=== PATIENT | female | born 1965 | race Caucasian/White ===

== ENCOUNTER 2020-11-11 16:05 | Emergency (ER) | payer OTHER ==
[~2020-11-11] VITALS: Ht 154.9 cm; Wt 71.7 kg
[~2020-11-11 16:05] MED LIST: GLIMEPIRIDE4 MG; GLUMETZA1000 MG; HUMULIN N100 U/ML; LIPITOR20 MG; LISINOPRIL10 MG; SIMVASTATIN20 MG
[2020-11-11] MEDS ORDERED: CRESTOR40 MG (17:00)
[2020-11-11] MEDS ORDERED: TOPROL XL50 M1 PO (17:00)
[2020-11-11] MEDS ORDERED: PLAVIX75 MG PO (17:00)
[2020-11-11] MEDS ORDERED: HUMULIN R500 UNIT/2 SQ (17:00)
[2020-11-11] MEDS ORDERED: LANTUS SOL100 UNIT/1 SQ (17:01)
[2020-11-11] MEDS ORDERED: DOLOGEN CAPLET1 EACH PO (17:20)
[2020-11-11] MEDS ORDERED: NORFLEX100MG PO (17:20)
== END 2020-11-11 19:02 | disposition home or self-care (01) ==
LOC: ER 16:05
DX: G89.11 Acute pain due to trauma (principal); M54.89 Other dorsalgia

== ENCOUNTER 2022-01-19 18:25 | Emergency (ER) | payer OTHER ==
[~2022-01-19] VITALS: Ht 154.9 cm; Wt 77.1 kg
[~2022-01-19 18:25] MED LIST changes: +CRESTOR40 MG; +DOLOGEN CAPLET1 EACH PO; +HUMULIN R500 UNIT/2 SQ; +LANTUS SOL100 UNIT/1 SQ; +NORFLEX100MG PO; +PLAVIX75 MG PO; +TOPROL XL50 M1 PO
[2022-01-19] MEDS ORDERED: AVALIDE 300-121 EACH PO (18:38)
[2022-01-19] MEDS ORDERED: CRESTOR40 MG PO (18:38)
[2022-01-19] MEDS ORDERED: BACTRIM 400-801 EACH PO (23:47)
== END 2022-01-19 23:59 | disposition home or self-care (01) ==
LOC: ER 18:25
DX: R60.0 Localized edema (principal); E11.22 Type 2 diabetes mellitus with diabetic chronic kidney disease; N18.4 Chronic kidney disease, stage 4 (severe); Z79.4 Long term (current) use of insulin; I13.0 Hypertensive heart and chronic kidney disease with heart failure and stage 1 through stage 4 chronic kidney disease, or unspecified chronic kidney disease; I50.9 Heart failure, unspecified; I25.10 Atherosclerotic heart disease of native coronary artery without angina pectoris; E78.00 Pure hypercholesterolemia, unspecified; Z88.6 Allergy status to analgesic agent; Z91.013 Allergy to seafood; Z88.0 Allergy status to penicillin

== ENCOUNTER 2023-10-07 16:15 | Inpatient (IN) | payer OTHER ==
[~2023-10-07] VITALS: Ht 154.9 cm; Wt 72.6 kg
[~2023-10-07 16:15] MED LIST changes: +AVALIDE 300-121 EACH PO; +BACTRIM 400-801 EACH PO; +CRESTOR40 MG PO
--- NOTE | 2023-10-07 16:37 | NUR ---
PACIENTE ALERTA Y ORIENTADA X 3. REFIERE DESDE SHOSHANA DIARREAS, DOLOR DE DIONICIO, PELVICO Y MAREOS. HOY REFIERE DIARREAS X 4
[2023-10-07] MEDS ORDERED: NIFEDIPINE20 MG (16:38)
[2023-10-07] MEDS ORDERED: CARVEDILOL12.5 M1 PO (16:38)
[2023-10-07] MEDS ORDERED: LOKELMA10 GM PO (16:39)
[2023-10-07] MEDS ORDERED: HYDRALAZINE HCL25 MG PO (16:39)
--- NOTE | 2023-10-07 18:06 | NUR ---
MR ALPHONSO LLEVA ACBO ORDENES BAJO MEDIDAS ACEPTICAS. PTE PEND A RESULTADOS DE LAB.
[2023-10-07 18:15] LABS: MEAN CELL VOLUME 83.8 fL (80.00-100.00); MEAN CORPUSCULAR HGB CONC 33.3 g/dl (32.0-36.0); PLATELET COUNT 244 K/uL (150-450); RED BLOOD COUNT 2.63 M/uL (4.00-6.00); RED CELL DISTRIBUTION WIDTH 15.9 % (11.5-14.5)
[2023-10-07 18:16] LABS: MEAN CORPUSCULAR HEMOGLOBIN 28.1 pg (27.00-32.0)
[2023-10-07 18:17] LABS: HEMATOCRIT 22.1 % (36.0-45.00); HEMOGLOBIN 7.4 g/dL (12.0-15.00)
[2023-10-07 18:42] LABS: ALBUMIN 2.7 gm/dL (3.4-5.0); BILIRUBIN TOTAL 0.61 mg/dL (0.3-1.2); GLOBULINA 4.3 G/DL (2.4-3.5); MAGNESIUM 2.1 mg/dL (1.8-2.4); POTASSIUM 4.04 mEq/L (3.5-5.1)
[2023-10-07 18:47] LABS: CREATININE SERUM 4.44 mg/dL (0.55-1.02); GFR 10.16
[2023-10-07 19:06] LABS: URINE APPEARANCE Clear; URINE BILIRRUBIN Negative (NEGATIVE); URINE BLOOD Trace; URINE COLOR Yellow; URINE GLUCOSE Negative (NEGATIVE); URINE LEUKOCYTE Negative; URINE NITRATE Negative; URINE UROBILINOGEN 0.2 E.U./dl
[2023-10-07 19:09] LABS: URINE EPITHELIAL CELLS 20.3 uL (0.0-38.8); URINE RBC 3.7 uL (0.0-20.8)
[2023-10-07 19:12] LABS: URINE PROTEIN 300 (NEGATIVE)
--- NOTE | 2023-10-07 22:14 | NUR ---
SE NOTIFICA A PERSONAL DE [employer] [facility] SOBRE TUBOS PILOTOS, SE REQUIZAN 3 UNIDADES DE PRBC FRACCIONADAS. PTE FIRMA AUTORIZACION DE TRANSFUSION, SE COLOCA DOCUMENTO EN RECORD DEL PTE. SE LLEVAN TUBOS PILOTOS A LABORATORIO. REQUIZICION NOTIFICADA A MRS. MARSHALL.
[2023-10-07 22:19] LABS: INR 1.04; PARTIAL THROMBOPLASTIN TIME 27.3 SECONDS (22.0-34.0); PROTHROMBIN TIME 10.9 SECONDS (9.0-11.5)
[2023-10-07] MEDS ORDERED: INSULIN GLARGINE,HUM.REC.ANLOG 1,000 UNITS/10 ML UNITS SUBCUTANEO SCH (22:32)
[2023-10-07] MEDS ORDERED: DEXTROSE 50 % IN WATER 0.5 G/ML DISP.SYRIN IV PRN (22:45)
[2023-10-07] MEDS ORDERED: FUROsemide 20 MG/2 ML VIAL IV SCH (22:45)
[2023-10-07] MEDS ORDERED: INSULIN LISPRO 1,000 UNIT/10 ML UNITS SUBCUTANEO PRN (22:45)
[2023-10-08] MEDS ORDERED: HYDROCHLOROTHIAZIDE 12.5 MG CAPSULE PO SCH (09:00)
[2023-10-08] MEDS ORDERED: ENOXAPARIN SODIUM 30 MG/0.3 ML SYRINGE SUBCUTANEO SCH (09:00)
[2023-10-08] MEDS ORDERED: NIFEDIPINE 30 MG TAB.SA.OSM PO SCH (09:00)
[2023-10-08] MEDS ORDERED: IRBESARTAN 300 MG TABLET PO SCH (09:00)
[2023-10-08] MEDS ORDERED: hydrALAZINE HCL 25 MG TABLET PO SCH ×2 (09:00→13:00)
[2023-10-08] MEDS ORDERED: PATIENTS OWN MEDICATION (MEDICAMENTO EN PISO) PO SCH ×2 (09:00)
[2023-10-08] MEDS ORDERED: CARVEDILOL 12.5 MG TABLET PO SCH (09:00)
[2023-10-08] MEDS ORDERED: TUBERCULIN,PURIF.PROT.DERIV. 5 TU/0.1 ML VIAL ID ONE (09:30)
[2023-10-08] MEDS ORDERED: ACETAMINOPHEN 500 MG GEL..CAP PO PRN (10:30)
[2023-10-09] MEDS ORDERED: INSULIN REGULAR, HUMAN 1,000 UNIT/10 ML UNITS SUBCUTANEO SCH ×2 (08:00)
[2023-10-09] MEDS ORDERED: CRESTOR 40 MG PO SCH (17:00)
[2023-10-10 07:14] LABS: HEMATOCRIT 39.1 % (36.0-45.00); HEMOGLOBIN 13.3 g/dL (12.0-15.00); MEAN CELL VOLUME 83.5 fL (80.00-100.00); MEAN CORPUSCULAR HEMOGLOBIN 28.4 pg (27.00-32.0); PLATELET COUNT 286 K/uL (150-450); RED BLOOD COUNT 4.68 M/uL (4.00-6.00); RED CELL DISTRIBUTION WIDTH 15.7 % (11.5-14.5)
[2023-10-10 07:36] LABS: ALBUMIN 3.4 gm/dL (3.4-5.0); CALCIUM 9.2 mg/dL (8.5-10.1); CHOL HDL RATIO 3.2 (0-5.0); GFR 9.73; MAGNESIUM 2.2 mg/dL (1.8-2.4); PHOSPHOROUS 5.2 mg/dL (2.5-4.9); POTASSIUM 3.25 mEq/L (3.5-5.1)
[2023-10-10 07:52] LABS: CREATININE SERUM 4.61 mg/dL (0.55-1.02)
[2023-10-10] MEDS ORDERED: CARVEDILOL 25 MG TABLET PO SCH (09:00)
[2023-10-10] MEDS ORDERED: POTASSIUM BICARBONATE/CIT AC 25 MEQ TABLET.EFF PO SCH (12:06)
[2023-10-10] MEDS ORDERED: CIPROFLOXACIN IN 5 % DEXTROSE 100 ML IV SCH (12:53)
[2023-10-10] MEDS ORDERED: METRONIDAZOLE/SODIUM CHLORIDE 100 ML IV SCH (17:00)
[2023-10-11] MEDS ORDERED: CIPROFLOXACIN IN 5 % DEXTROSE 100 ML IV SCH (01:00)
[2023-10-11 07:04] LABS: HEMATOCRIT 39.3 % (36.0-45.00); HEMOGLOBIN 13.6 g/dL (12.0-15.00); MEAN CELL VOLUME 83.1 fL (80.00-100.00); MEAN CORPUSCULAR HEMOGLOBIN 28.7 pg (27.00-32.0); MEAN CORPUSCULAR HGB CONC 34.5 g/dl (32.0-36.0); PLATELET COUNT 282 K/uL (150-450); RED BLOOD COUNT 4.73 M/uL (4.00-6.00); RED CELL DISTRIBUTION WIDTH 15.8 % (11.5-14.5)
[2023-10-11 07:48] LABS: ALBUMIN 3.1 gm/dL (3.4-5.0); BILIRUBIN TOTAL 0.65 mg/dL (0.3-1.2); GFR 9.75; GLOBULINA 3.8 G/DL (2.4-3.5); PHOSPHOROUS 5.1 mg/dL (2.5-4.9); POTASSIUM 3.94 mEq/L (3.5-5.1); TOTAL PROTEIN 6.9 gm/dL (6.4-8.2)
[2023-10-11 08:04] LABS: CREATININE SERUM 4.6 mg/dL (0.55-1.02)
[2023-10-11] MEDS ORDERED: IOVERSOL 320 MG/ML - 50 ML VIAL IV ONE (18:59)
[2023-10-11] MEDS ORDERED: BUPIVACAINE HCL/PF 0.5% 30ML ML ONE (18:59)
[2023-10-12] MEDS ORDERED: INSULIN REGULAR, HUMAN 1,000 UNIT/10 ML UNITS SUBCUTANEO SCH (12:00)
[2023-10-12] MEDS ORDERED: hydrALAZINE HCL 50 MG TABLET PO SCH ×2 (13:00→17:00)
[2023-10-13] MEDS ORDERED: INSULIN REGULAR, HUMAN 1,000 UNIT/10 ML UNITS SUBCUTANEO SCH ×2 (08:00→17:00)
[2023-10-13 08:11] LABS: HEMOGLOBIN 12.3 g/dL (12.0-15.00); MEAN CELL VOLUME 84.9 fL (80.00-100.00); MEAN CORPUSCULAR HEMOGLOBIN 29.8 pg (27.00-32.0); MEAN CORPUSCULAR HGB CONC 35.1 g/dl (32.0-36.0); PLATELET COUNT 242 K/uL (150-450); RED BLOOD COUNT 4.13 M/uL (4.00-6.00); RED CELL DISTRIBUTION WIDTH 15.5 % (11.5-14.5)
[2023-10-13 08:37] LABS: ALBUMIN 2.8 gm/dL (3.4-5.0); BILIRUBIN TOTAL 0.42 mg/dL (0.3-1.2); CALCIUM 8.7 mg/dL (8.5-10.1); CREATININE SERUM 3.24 mg/dL (0.55-1.02); GFR 14.61; GLOBULINA 3.3 G/DL (2.4-3.5); MAGNESIUM 2.5 mg/dL (1.8-2.4); PHOSPHOROUS 4.1 mg/dL (2.5-4.9); POTASSIUM 3.89 mEq/L (3.5-5.1); TOTAL PROTEIN 6.1 gm/dL (6.4-8.2)
[2023-10-13] MEDS ORDERED: INSULIN GLARGINE,HUM.REC.ANLOG 1,000 UNITS/10 ML UNITS SUBCUTANEO SCH (09:00)
[2023-10-15 07:05] LABS: CALCIUM 8.9 mg/dL (8.5-10.1); GFR 10.13; MAGNESIUM 2.7 mg/dL (1.8-2.4); PHOSPHOROUS 4.7 mg/dL (2.5-4.9); POTASSIUM 3.64 mEq/L (3.5-5.1)
[2023-10-15 07:31] LABS: HEMATOCRIT 34.5 % (36.0-45.00); HEMOGLOBIN 11.8 g/dL (12.0-15.00); MEAN CELL VOLUME 86.1 fL (80.00-100.00); MEAN CORPUSCULAR HEMOGLOBIN 29.5 pg (27.00-32.0); MEAN CORPUSCULAR HGB CONC 34.2 g/dl (32.0-36.0); PLATELET COUNT 147 K/uL (150-450); RED CELL DISTRIBUTION WIDTH 15.4 % (11.5-14.5)
[2023-10-15 07:48] LABS: CREATININE SERUM 4.45 mg/dL (0.55-1.02)
[2023-10-16] MEDS ORDERED: HEPARIN SODIUM,PORCINE 5,000 UNITS/ML VIAL SUBCUTANEO SCH (21:00)
[2023-10-17 05:24] LABS: HEMATOCRIT 35.9 % (36.0-45.00); HEMOGLOBIN 12.3 g/dL (12.0-15.00); MEAN CELL VOLUME 85.2 fL (80.00-100.00); MEAN CORPUSCULAR HEMOGLOBIN 29.2 pg (27.00-32.0); MEAN CORPUSCULAR HGB CONC 34.3 g/dl (32.0-36.0); PLATELET COUNT 218 K/uL (150-450); RED BLOOD COUNT 4.22 M/uL (4.00-6.00); RED CELL DISTRIBUTION WIDTH 14.9 % (11.5-14.5)
[2023-10-17 05:59] LABS: BILIRUBIN TOTAL 0.54 mg/dL (0.3-1.2); GFR 11.2; GLOBULINA 3.1 G/DL (2.4-3.5); MAGNESIUM 2.5 mg/dL (1.8-2.4); PHOSPHOROUS 4.5 mg/dL (2.5-4.9); POTASSIUM 3.64 mEq/L (3.5-5.1); TOTAL PROTEIN 6.1 gm/dL (6.4-8.2)
[2023-10-17 06:32] LABS: CREATININE SERUM 4.08 mg/dL (0.55-1.02)
[2023-10-18] MEDS ORDERED: HYDRALAZINE HCL50 MG PO (10:29)
== END 2023-10-18 13:19 | disposition home or self-care (01) | DRG 811 ==
LOC: ER 16:15 → MEDJ 22:34
PROVIDERS: General Practice; Internal Medicine; Internal Medicine Nephrology; ADMIT Internal Medicine; ATTEND Internal Medicine
PROC: 30233N1 Transfusion of Nonautologous Red Blood Cells into Peripheral Vein, Percutaneous Approach (ICD-10-PCS; principal; 2023-10-08)
PROC: BW21ZZZ Computerized Tomography (CT Scan) of Abdomen and Pelvis (ICD-10-PCS; 2023-10-08)
PROC: 05HM33Z Insertion of Infusion Device into Right Internal Jugular Vein, Percutaneous Approach (ICD-10-PCS; 2023-10-11)
PROC: B513YZA Fluoroscopy of Right Jugular Veins using Other Contrast, Guidance (ICD-10-PCS; 2023-10-11)
PROC: B543ZZA Ultrasonography of Right Jugular Veins, Guidance (ICD-10-PCS; 2023-10-11)
PROC: 5A1D70Z Performance of Urinary Filtration, Intermittent, Less than 6 Hours Per Day (ICD-10-PCS; 2023-10-12)
PROC: 5A1D70Z Performance of Urinary Filtration, Intermittent, Less than 6 Hours Per Day (ICD-10-PCS; 2023-10-15)
PROC: 5A1D70Z Performance of Urinary Filtration, Intermittent, Less than 6 Hours Per Day (ICD-10-PCS; 2023-10-17)
DX: D64.89 Other specified anemias (principal); N18.6 End stage renal disease; I12.0 Hypertensive chronic kidney disease with stage 5 chronic kidney disease or end stage renal disease; N17.9 Acute kidney failure, unspecified; D63.1 Anemia in chronic kidney disease; E87.6 Hypokalemia; K52.9 Noninfective gastroenteritis and colitis, unspecified; E11.65 Type 2 diabetes mellitus with hyperglycemia; K62.89 Other specified diseases of anus and rectum; E11.22 Type 2 diabetes mellitus with diabetic chronic kidney disease; Z79.4 Long term (current) use of insulin; Z95.1 Presence of aortocoronary bypass graft; Z99.2 Dependence on renal dialysis; Z88.0 Allergy status to penicillin